=== PATIENT | female | born 1965 | race African-American/Black ===

== ENCOUNTER 2019-03-21 16:04 | Emergency (ER) | payer SELFPAY ==
[~2019-03-21] VITALS: Ht 167.6 cm; Wt 64.0 kg
[2019-03-21] MEDS ORDERED: MORPHINE SULFATE 4 MG/ML CPJ (NOT FOR IM USE) IV STA (16:32)
[2019-03-21] MEDS ORDERED: ONDANSETRON HCL 4MG/2ML INJ IV STA (16:32)
[2019-03-21 16:59] LABS: BASOPHILS % 0.7 % (0.0-2.0); EOSINOPHILS % 1.2 % (0.0-5.0); HEMATOCRIT. 31.6 % (36.0-48.0); HEMOGLOBIN. 10.5 g/dL (12.0-16.0); LYMPHOCYTES % 9.9 % (20.0-50.0); MEAN CORPUSCULAR HEMOGLOBIN 30.5 pg (28.0-32.0); MEAN CORPUSCULAR VOLUME 91.5 fL (81.0-99.0); MEAN PLATELET VOLUME 6.8 fl (7.4-10.4); MONOCYTES % 9.3 % (2.0-8.0); NEUTROPHILS % 78.9 % (40.0-76.0); PLATELET 317 x1000/uL (130-400); RED BLOOD CELL COUNT 3.45 mill/uL (4.2-5.4); RED CELL DISTRIBUTION WIDTH 16.3 % (11.6-14.6)
[2019-03-21 17:05] LABS: CHLORIDE 110 mEq/L (98-107); PROTHROMBIN TIME 10.7 sec (9.6-11.0)
[2019-03-21 17:21] VITALS: BP 132/85
== END 2019-03-21 18:32 | disposition home or self-care (01) ==
LOC: ER 18:21
DX: R51 Headache (principal); E11.9 Type 2 diabetes mellitus without complications; I10 Essential (primary) hypertension; Z88.8 Allergy status to other drugs, medicaments and biological substances; Z98.890 Other specified postprocedural states
CPT/HCPCS: 36415; 80053; 85025; 85610; 96374; 99283; J2270; J2405